=== PATIENT | male | born 1945 | race African-American/Black ===

== ENCOUNTER 2017-07-01 12:45 | Emergency (ER) | payer SELFPAY ==
[2017-07-01 12:54] VITALS: BMI 25.7
--- NOTE | 2017-07-01 13:57 | PDOC ---
History of Present Illness - General Chief Complaint: Pain, Acute Stated Complaint: FALL In 09/2016 LT ARM, SHOULDER PAIN Time Seen by Provider: 07/01/17 13:31 - History of Present Illness Initial Comments: 07/01/17 13:52 CHIEF COMPLAINT: left shoulder pain HISTORY OF PRESENT ILLNESS: 72 yo M with hx of NIDDM and HTN presents to fast track with left shoulder pain since the beginning of this year. Patient states "I got weak and fell in September" and since then he's been having discomfort to his left shoulder. He states that he is feeling worsening pain to his arm including numbness to his left fingers and hands. He denies any chest pain, shortness of breath, palpitations, weakness. He states the pain in his shoulder is worse with movement and that he can not move his arm all the way up due to pain "inside the shoulder." Patient recently moved from [facility] to [place] and does not have a PCP or any specialty doctors here. PAST MEDICAL HISTORY: NIDDM, HTN FAMILY HISTORY: Denies SOCIAL HISTORY: Denies tobacco, alcohol, illicit drug use. SURGICAL HISTORY: appendectomy (2003) ALLERGIES: No known drug allergies REVIEW OF SYSTEMS General/Constitutional: Denies fever or chills. Denies weakness, weight change. HEENT: Denies change in vision. Denies ear pain or discharge. Denies sore throat. Cardiovascular: Denies chest pain or shortness of breath. Respiratory: Denies cough, wheezing, or hemoptysis. Gastrointestinal: Denies nausea, vomiting, diarrhea or constipation. Denies rectal bleeding. Genitourinary: Denies dysuria, frequency, or change in urination. Musculoskeletal: Left shoulder pain. Skin and breasts: Denies rash or easy bruising. Neurologic: Denies headache, vertigo, loss of consciousness, or loss of sensation. PHYSICAL EXAM General Appearance: Well-appearing, appropriately dressed. No apparent distress. HEENT: EOMI, PERRLA, normal ENT inspection, normal voice, TMs normal, pharynx normal. No conjunctival pallor. No photophobia, scleral icterus. Neck: Supple. Trachea midline. No tenderness, rigidity, carotid bruit, stridor , lymphadenopathy, or thyromegaly. Respiratory/Chest: Lungs CTAB. No shortness of breath, chest tenderness, respiratory distress, accessory muscle use. No crackles, rales, rhonchi, stridor , wheezing, dullness Cardiovascular: Tachycardic to 100. RRR. S1, S2. No JVD, murmu. Vascular Pulses: Dorsalis-Pedis (R): 2+, Dorsalis-Pedis (L): 2+ Gastrointestinal/Abdominal: Normal bowel sounds. Abdomen soft, non-distended. No tenderness or rebound tenderness. No organomegaly, pulsatile mass, guarding , hernia, hepatomegaly, splenomegaly. Lymphatic: No adenopathy, tenderness. Musculoskeletal/Extremities: +Neer/Hawkin's test, +empty can test. Limited ROM to left arm secondary to pain to shoulder. Normal capillary refill. No tenderness to extremities, pedal edema, swelling, erythema or deformity. Integumentary: Appropriate color, dry, warm. No cyanosis, erythema, jaundice or rash Neurologic: wheel aligner II-XII intact. Fully oriented, alert. Appropriate mood/affect. Motor strength 5/5. No appreciable EOM palsy, facial droop or sensory deficit. 07/01/17 14:07 Past History - Past Medical History Allergies/Adverse Reactions: Allergies Allergy/AdvReac Type Severity Reaction Status Date / Time No Known Allergies Allergy Verified 07/01/17 12:54 Home Medications: Ambulatory Orders Unobtainable [Unobtainable] 07/01/17 Diabetes: Yes HTN: Yes - Suicide/Smoking/Psychosocial Hx Smoking History: Never smoked Hx Alcohol Use: No Drug/Substance Use Hx: No Substance Use Type: None *Physical Exam - Vital Signs Last Vital Signs Temp Pulse Resp BP Pulse Ox 97.8 F 96 H 19 155/88 99 07/01/17 12:51 07/01/17 12:51 07/01/17 12:51 07/01/17 12:51 07/01/17 12:51 Medical Decision Making - Medical Decision Making 07/01/17 13:57 72 yo M with hx of NIDDM and HTN presents to fast track with left shoulder pain since the beginning of this year. Patient has reproducible shoulder pain on exam. Most likely MSK in etiology but will do EKG to r/o cardiac due to comorbidities and HR 100. -EKG Upon questioning patient if he has any known kidney problems, patient mentions that he "might have something, my doctor told me I had a 'dot' on my kidney the last time" and my blood tests had something wrong with them. Will order labs to check renal function and to r/o cardiac etiology as well. -CBC, CMP, trop Discussed case with attending Sapna Rizo, will transfer patient to main ED for further workup.
[2017-07-01 14:12] LABS: BASOPHIL 1.1 % (0-2.0); EOSINOPHIL 1.5 % (0-4.5); MCH 28.7 pg (25.7-33.7); MCHC 33.4 g/dl (32.0-35.9); MEAN CELL VOLUME 85.9 fl (80-96); MEAN PLT VOLUME 10.2 fl (7.5-11.1); NEUTROPHILS 54.4 % (42.8-82.8); PLATELET COUNT 145 K/MM3 (134-434); RDW 13.3 % (11.9-15.9); WHITE BLOOD COUNT 5.4 K/mm3 (4.0-10.0)
[2017-07-01 14:37] LABS: ALBUMIN 3.9 g/dl (3.4-5.0); ALK PHOS 138 U/L (45-117); ANION GAP 6 (8-16); BILIRUBIN,TOTAL 0.5 mg/dL (0.2-1.0); CALCIUM 9.1 mg/dL (8.5-10.1); CO2 31 mmol/L (21-32); CPK 139 IU/L (39-308); CREATININE 1.4 mg/dL (0.7-1.3); SGOT/AST 21 U/L (15-37); SGPT/ALT 43 U/L (12-78); TOT PROT 7.7 g/dl (6.4-8.2)
[2017-07-01 14:39] LABS: TROPONIN I < 0.02 ng/ml (0.00-0.05)
[2017-07-01 14:40] LABS: GLUCOSE,RANDOM 315 mg/dL (74-106)
--- NOTE | 2017-07-01 14:53 | PDOC ---
*Physical Exam - Vital Signs Last Vital Signs Temp Pulse Resp BP Pulse Ox 97.8 F 96 H 19 155/88 99 07/01/17 12:51 07/01/17 12:51 07/01/17 12:51 07/01/17 12:51 07/01/17 12:51 ED Treatment Course - LABORATORY CBC & Chemistry Diagram: 07/01/17 14:00 07/01/17 14:00 - ADDITIONAL ORDERS Additional order review: Laboratory Results 07/01/17 14:00 Sodium 136 Potassium 4.5 Chloride 99 Carbon Dioxide 31 Anion Gap 6 L BUN 14 Creatinine 1.4 H Creat Clearance w eGFR 49.82 Random Glucose 315 H* Calcium 9.1 Total Bilirubin 0.5 AST 21 ALT 43 Alkaline Phosphatase 138 H Creatine Kinase 139 Troponin I < 0.02 Total Protein 7.7 Albumin 3.9 07/01/17 14:00 RBC 5.28 MCV 85.9 MCHC 33.4 RDW 13.3 MPV 10.2 Neutrophils % 54.4 Lymphocytes % 31.0 Monocytes % 12.0 H Eosinophils % 1.5 Basophils % 1.1 - RADIOLOGY Radiology Studies Ordered: Category Date Time Status CHEST PA & LAT [RAD] Stat Radiology 07/01/17 14:30 Taken Medical Decision Making - Medical Decision Making 07/01/17 14:41 72yo M hx NIDDM p/w 1 year of L shoulder pain a/w L arm tingling. Pt presents to the ED today to establish care in [place] as he recently moved here. He was initially seen in [facility] but transferred to us to evaluate for cardiac etiology of the L shoulder pain. The pt denies any change in the quality or severity recently but notes that the pain has been persistent for the last year since he fell onto his L shoulder. He reports seeing his doctor in [place] for the pain and was referred to PT for 2 months which he states did not help. He has not sought care since then. Denies CP, sob. Shoulder pain does not get worse with exertion but only with ROM of the shoulder and if he pushes the front aspect of his shoulder. Denies dizziness, loss of consciousness, fevers, chills , abd pain, N/V/D, diaphoresis, weakness, LE edema. On my exam: GENERAL: Awake, alert, and fully oriented, in no acute distress HEAD: No signs of trauma EYES: PERRLA, EOMI, sclera anicteric, conjunctiva clear ENT: Auricles normal inspection, hearing grossly normal, nares patent, oropharynx clear without exudates. Moist mucosa NECK: Normal ROM, supple, no lymphadenopathy, JVD, or masses LUNGS: Breath sounds equal, clear to auscultation bilaterally. No wheezes, and no crackles HEART: Regular rate and rhythm, normal S1 and S2, 3/6 systolic ejection murmur loudest over R 2nd ICS space, rubs or gallops ABDOMEN: Soft, nontender, normoactive bowel sounds. No guarding, no rebound. No masses EXTREMITIES: Normal range of motion, no edema. No clubbing or cyanosis. No cords, erythema. 2+ peripheral pulses. +ttp to anterior aspect of the L shoulder. NEUROLOGICAL: Normal speech, cranial nerves intact, negative pronator drift, 5/ 5 strength in all 4 extremities, normal sensation to light touch in all 4 extremities, normal cerebellar exam, normal gait, normal reflexes and tone SKIN: Warm, Dry, normal turgor, no rashes or lesions noted. Pain is likely MSK given the chronicity, preceding fall, pain with ROM and ttp of the anterior aspect of the L shoulder. Cardiac etiology is also a thought given L arm imvolvement and tingling, however pain has been present for a year, does not change with exertion, and was associated with trauma. Given the pt's age and hx DM, we will check a troponin to evaluate for ACS. EKG NSR, rate 88, normal axis and intervals, no ALMA with TWI in leave aVL and TW flattening in I. We have no previous EKGs to compare. I discussed with the family that a troponin does not r/o cardiac etiology and that the patient will need to see a team lead for further testing and evaluation. Pt will also need evaluation for his systolic ejection murmur which may represent aortic stenosis. Pt with no sxs of critical and denies dizziness, CP, SOB, syncope, weakness. Will check labs/trop, CXR and reassess. Family in agreement with our plan. 07/01/17 16:28 Labs with glucose of 315. Pt states he did not take his metformin this morning. Remainder of labs unremarkable. Chest x-ray clear however there is a possible lung nodule which I discussed with the family. I advised him to follow up to make sure the lung nodule is not cancerous. I provided the number for a primary care doctor and a team lead for the family to follow-up within the next week. The family expresses understanding of this plan. I discussed the physical exam findings, ancillary test results and final diagnoses with the patient. I answered all of the patient's questions. The patient was satisfied with the care received and felt comfortable with the discharge plan and treatment plan. The patient will call their primary care physician within 24 hours to arrange follow-up and will return to the Emergency Department with any new, persistent or worsening symptoms. *DC/Admit/Observation/Transfer Diagnosis at time of Disposition: Shoulder pain - Discharge Dispostion Disposition: HOME Condition at time of disposition: Stable Admit: No - Referrals Referrals: Moises Mistry MD [Staff Physician] - Tulio Lechuga MD [Staff Physician] - - Patient Instructions Printed Discharge Instructions: DI for Shoulder Pain Additional Instructions: Please call Dr. Mistry's office tomorrow for a follow up appointment with a primary care doctor within 2-3 days. Also, call Dr. Lechuga's office tomorrow for follow up with a team lead within 1 week. Take your results that I provided you with copies of. Please make sure to discuss the lung nodule seen on your chest x-ray with Dr. Mistry, as there is a chance this nodule could represent cancer. Return to the emergency department immediately for any new, worsening, or concerning symptoms. - Attestations Physician Attestion: 07/01/17 16:19 I, Dr. Wagner Chance MD, attest that this document has been prepared under my direction and personally reviewed by me in its entirety. I further attest, that it accurately reflects all work, treatment, procedures and medical decision -making performed by me.
--- NOTE | 2017-07-01 15:34 | EKG ---
Test Reason : Blood Pressure : / mmHG Vent. Rate : 088 BPM Atrial Rate : 088 BPM P-R Int : 166 ms QRS Dur : 082 ms QT Int : 344 ms P-R-T Axes : 068 043 081 degrees QTc Int : 416 ms NORMAL SINUS RHYTHM POSSIBLE LEFT ATRIAL ENLARGEMENT SLIGHT ST ELEVATION AND T WAVE INVERSION IN aVL, HIGH LATERAL WALL [place] CANNOT BE EXCLUDEF, NO PREVIOUS ECGS AVAILABLE CLINICAL CORRELATION AND FOLLOW UP EKG IS RECOMMENDED. Confirmed by MIRANDA LOPEZ MD ([id number]) on 07/01/2017 3:34:04 PM Referred By: EC Confirmed By:MIRANDA LOPEZ MD
[2017-07-01 16:50] VITALS: BP 154/86; PULSE 88; TEMP 98.6
== END 2017-07-01 16:50 | disposition home or self-care (01) ==
LOC: JERFT 12:45 → JER 12:45
DX: M25.512 Pain in left shoulder (principal); I10 Essential (primary) hypertension; E11.9 Type 2 diabetes mellitus without complications
CPT/HCPCS: 36415; 71020-TC; 80053; 84484; 85025; 93005; 93010; 99282-25